=== PATIENT | male | born 1955 | race Two or more races ===

== ENCOUNTER 2022-04-21 15:25 | Emergency (ER) | payer OTHER ==
[~2022-04-21] VITALS: Ht 172.7 cm; Wt 91.0 kg
[2022-04-21] MEDS ORDERED: OXYCODONE HCL/ACETAMINOPHEN 5/325MG TABLET PO ONE (20:15)
[2022-04-21 20:42] VITALS: BP 147/78
== END 2022-04-21 20:44 | disposition home or self-care (01) ==
LOC: ER 15:25
DX: S63.502A Unspecified sprain of left wrist, initial encounter (principal); S63.501A Unspecified sprain of right wrist, initial encounter; S83.91XA Sprain of unspecified site of right knee, initial encounter; Z88.5 Allergy status to narcotic agent; Z88.6 Allergy status to analgesic agent; Z98.890 Other specified postprocedural states; W01.0XXA Fall on same level from slipping, tripping and stumbling without subsequent striking against object, initial encounter; Y93.89 Activity, other specified; Y92.89 Other specified places as the place of occurrence of the external cause; Y99.8 Other external cause status
CPT/HCPCS: 73110; 73564; 99284; L1830

== ENCOUNTER 2024-01-03 15:07 | Emergency (ER) | payer MEDICARE, MEDICAID ==
[~2024-01-03] VITALS: Ht 172.7 cm; Wt 85.0 kg
[~2024-01-03 15:07] MED LIST: ATOR10TA69 PO; BENA5TAB40 PO; GABA300S4 PO; LEVO750T68 MT; METF-818 PO; OMEP20CA14 PO; TRAM50TA3 PO
[2024-01-03 15:26] VITALS: O2SAT 97
[2024-01-03 16:41] VITALS: BP 105/62; PULSE 88; RESP 18; TEMP 98.6; O2SAT 97
== END 2024-01-03 16:52 | disposition home or self-care (01) ==
LOC: ER 15:07
DX: M79.642 Pain in left hand (principal); M25.532 Pain in left wrist; E11.9 Type 2 diabetes mellitus without complications; I10 Essential (primary) hypertension; Z88.6 Allergy status to analgesic agent; Z88.5 Allergy status to narcotic agent; Z88.8 Allergy status to other drugs, medicaments and biological substances; Z79.899 Other long term (current) drug therapy
CPT/HCPCS: 73130; 99283

== ENCOUNTER 2024-02-17 14:02 | Emergency (ER) | payer MEDICARE, MEDICAID ==
[~2024-02-17] VITALS: Ht 165.1 cm; Wt 58.0 kg
[2024-02-17 14:05] VITALS: O2SAT 99
[2024-02-17 14:13] VITALS: BP 117/84; PULSE 106; RESP 18; TEMP 98.3; O2SAT 99
[2024-02-17] MEDS ORDERED: LIDO700A15 TP (16:59)
== END 2024-02-17 17:22 | disposition home or self-care (01) ==
LOC: ER 14:02
DX: M79.642 Pain in left hand (principal); M79.641 Pain in right hand; Z88.6 Allergy status to analgesic agent; Z79.899 Other long term (current) drug therapy; Z88.5 Allergy status to narcotic agent; E11.9 Type 2 diabetes mellitus without complications; I10 Essential (primary) hypertension; R51.9 Headache, unspecified
CPT/HCPCS: 71045; 73130; 99284

== ENCOUNTER 2024-12-26 15:10 | Emergency (ER) | payer MEDICARE, MEDICAID ==
[~2024-12-26] VITALS: Ht 170.2 cm; Wt 68.0 kg
[~2024-12-26 15:10] MED LIST changes: +LIDO-53 TP
[2024-12-26 15:15] VITALS: O2SAT 98
[2024-12-26] MEDS: CYCLOBENZAPRINE 10MG TABLET PO ONE (18:00)
[2024-12-26] MEDS: LIDOCAINE 5% PATCH TOP STA (18:24)
[2024-12-26] MEDS: KETOROLAC 30MG/ML VIAL IM ONE (18:25)
[2024-12-26] MEDS ORDERED: LIDO700A30 TP (19:59)
[2024-12-26] MEDS ORDERED: CYCL10TA21 MT (19:59)
[2024-12-26 20:20] VITALS: BP 157/90; PULSE 87; RESP 17; TEMP 36.7; O2SAT 100
== END 2024-12-26 20:21 | disposition home or self-care (01) ==
LOC: ER 15:10
DX: K40.90 Unilateral inguinal hernia, without obstruction or gangrene, not specified as recurrent (principal); M54.41 Lumbago with sciatica, right side; E11.9 Type 2 diabetes mellitus without complications; I10 Essential (primary) hypertension; Z88.6 Allergy status to analgesic agent; Z88.5 Allergy status to narcotic agent; Z79.899 Other long term (current) drug therapy
CPT/HCPCS: 99283; 72100; 96372; J1885